=== PATIENT | female | born 1970 | race Caucasian/White ===

== ENCOUNTER 2018-11-08 10:40 | Inpatient (IN) ==
[2018-11-08 12:13] LABS: Baso # (Auto) 0.1 th/mm3 (0.0-0.2); Baso % (Auto) 1.1 % (0.0-2.0); Eos # (Auto) 0.3 th/mm3 (0.0-0.4); Eos % (Auto) 4.4 % (0.0-4.0); Hematocrit 39.5 % (35.0-46.0); Hemoglobin 13.2 gm/dL (11.6-15.3); Lymph # (Auto) 3.1 th/mm3 (1.0-4.8); Lymph % (Auto) 40.2 % (9.0-44.0); Mean Corpuscular HGB Conc 33.4 % (32.0-36.0); Mean Corpuscular Volume 89.7 fL (80.0-100.0); Mean Platelet Volume 10.3 fL (7.0-11.0); Mono # (Auto) 0.6 th/mm3 (0.0-0.9); Mono % (Auto) 8.3 % (0.0-8.0); Neut # (Auto) 3.5 th/mm3 (1.8-7.7); Platelet Count 279 th/mm3 (150-450); Red Cell Distribution Width 14.7 % (11.6-17.2); White Blood Count 7.7 th/mm3 (4.0-11.0)
--- NOTE | 2018-11-08 12:14 | ED ---
HPI General Chief complaint: Skin/Abscess/Foreign Body Stated complaint: Dr Thompson/Sarah Infection on foot (Right) Time Seen by Provider: 11/08/18 11:08 Source: patient Mode of arrival: ambulatory Limitations: no limitations History of Present Illness HPI narrative: Patient is a 48-year-old female presenting to the emergency department for evaluation of possible osteomyelitis. Patient reports that she has had a blister to the lateral aspect of the right foot for at least 1 week. She states is been draining clear fluids. She is followed by curtain inspector, Dr. Phelan. She states he sent her into the emergency department for further evaluation. Patient states that she has noticed serous fluid draining from this area. She initially thought it was just a callus however she states her doctor told her there was pus under it. Patient reports a history of diabetes with diabetic neuropathy, her diabetes is uncontrolled and her last A1c was 12. Past medical history significant for hypertension and hyperlipidemia as well. She is pain-free currently. She denies any fever, chills, nausea, vomiting, weakness. Symptom onset was gradual, symptoms are moderate. Related Data Home Medications Medication Instructions Recorded Confirmed glipizide 10 mg PO BID 11/08/18 11/08/18 insulin NPH and regular human 60 units SUBCUT BID 11/08/18 11/08/18 [Novolin 70/30 U-100 Insulin] lisinopril 40 mg PO DAILY 11/08/18 11/08/18 lovastatin 20 mg PO DAILY 11/08/18 11/08/18 metformin 500 mg PO BID 11/08/18 11/08/18 Previous Rx's Medication Instructions Recorded cephalexin 500 mg PO BID 7 Days #14 cap 11/10/18 mupirocin calcium [Bactroban] 1 applic TOPICAL BID #15 g 11/10/18 Allergies Allergy/AdvReac Type Severity Reaction Status Date / Time Sulfa (Sulfonamide Allergy Rash Verified 11/08/18 10:51 Antibiotics) Review of Systems ROS: all other systems reviewed are negative [facility] Medical History Medical History Diabetic neuropathy (Acute) Hyperlipidemia (Acute) Hypertension (Acute) Obesity (Acute) Type 2 diabetes mellitus (Acute) Social History Social History Substance History: No History of Abuse Second Hand Smoke Exposure: Yes (childhood) Smoking Status: Former smoker Tobacco Type: Cigarettes How Often Do You Have a Drink Containing Alcohol: Never Recent Travel in [facility] within the Last 8 Weeks: No Recent Out of Country Travel within the Last 8 Weeks: No Immunization History Tetanus Immunization: Unsure Exam Narrative Exam Narrative: GENERAL: Obese, well-developed, alert female. Presenting in no acute distress. SKIN: Focused skin assessment warm/dry. Bullous lesion to the lateral aspect of the right foot extending to the plantar surface. Fluctuant, nontender, no induration noted. HEAD: Atraumatic. Normocephalic. EYES: Pupils equal and round. No scleral icterus. No injection or drainage. ENT: No nasal bleeding or discharge. Mucous membranes pink and moist. NECK: Trachea midline. No JVD. CARDIOVASCULAR: Regular rate and rhythm. No murmur appreciated. RESPIRATORY: No accessory muscle use. Clear to auscultation. Breath sounds equal bilaterally. GASTROINTESTINAL: Abdomen soft, non-tender, nondistended. Hepatic and splenic margins not palpable. MUSCULOSKELETAL: No obvious deformities. No clubbing. No cyanosis. No edema. 2+ dorsalis pedal pulse. Brisk less than 3-second capillary refill. NEUROLOGICAL: Awake and alert. No obvious cranial nerve deficits. Motor grossly within normal limits. Normal speech. PSYCHIATRIC: Appropriate mood and affect; insight and judgment normal. Course Initial Documented Vital Signs Temperature 98.4 F 11/08/18 10:51 Pulse Rate 80 11/08/18 10:51 Respiratory Rate 16 11/08/18 10:51 Blood Pressure 175/95 H 11/08/18 10:51 Last Documented Vital Signs Temperature 98.1 F 11/10/18 12:00 Pulse Rate 74 11/10/18 12:00 Respiratory Rate 20 11/10/18 12:00 Blood Pressure 105/58 L 11/10/18 12:00 Pulse Oximetry 99 11/10/18 12:00 Medical Decision Making GREGG Attestation GREGG supervised visit: Yes Attestation: I, Dr. Britt, have reviewed the advance practice practitioner' s documentation and am in agreement, met with the patient face to face, made the diagnosis, and the medical decision making was done by me. The patient was initially evaluated by [yumiko farmer]. Please see their complete history and physical. MDM Narrative Medical decision making narrative: Patient is a well-appearing 48-year-old female presenting with a wound to her right foot. Patient's vital signs are stable, labs and imaging ordered and pending. Patient has no complaints of pain at this time. Patient encouraged to notify RN if she is experiencing any pain. CBC with no acute findings, chemistry with an elevated blood glucose otherwise unremarkable. CRP 2.20, sed rate 24. Patient was given 1 g of vancomycin IV. CT scan shows diffuse subcutaneous edema, no organized fluid collection, no sign of osteomyelitis. Discussed with Dr. Phelan, he requested a consult be placed to Dr. Drew who would see patient in the hospital. He felt that patient would be better managed and patient to keep her blood glucose under control as well. Discussed with Dr. Kelvin Meraz who accepted admit, orders placed. Patient is made aware of all clinical findings and plan of care and is agreeable. Medical Screen Exam Complete: Yes Emergency Medical Condition: Yes Differential Diagnosis Differential Diagnosis: Cellulitis versus abscess versus osteomyelitis versus other Lab Data Result diagrams: 11/09/18 04:25 11/09/18 04:25 POC Results POC Urine Results Negative Lab Results 11/08/18 11/08/18 11/08/18 Range/Units 11:51 11:51 11:55 WBC 7.7 (4.0-11.0) th/mm3 RBC 4.40 (4.00-5.30) mil/mm3 Hgb 13.2 (11.6-15.3) gm/dL Hct 39.5 (35.0-46.0) % MCV 89.7 (80.0-100.0) fL MCH 30.0 (27.0-34.0) pg MCHC 33.4 (32.0-36.0) % RDW 14.7 (11.6-17.2) % Plt Count 279 (150-450) th/mm3 MPV 10.3 (7.0-11.0) fL Neut % (Auto) 46.0 (16.0-70.0) % Lymph % (Auto) 40.2 (9.0-44.0) % [place] % (Auto) 8.3 H (0.0-8.0) % Eos % (Auto) 4.4 H (0.0-4.0) % Baso % (Auto) 1.1 (0.0-2.0) % Neut # (Auto) 3.5 (1.8-7.7) th/mm3 Lymph # (Auto) 3.1 (1.0-4.8) th/mm3 [place] # (Auto) 0.6 (0.0-0.9) th/mm3 Eos # (Auto) 0.3 (0.0-0.4) th/mm3 Baso # (Auto) 0.1 (0.0-0.2) th/mm3 WBC Differential . Differential Comment Auto diff final ESR 24 H (0-20) mm/hr Sodium 133 L (136-145) meq/L Potassium 4.9 (3.5-5.1) meq/L Chloride 101 (98-107) meq/L Carbon Dioxide 27.6 (21.0-32.0) meq/L Anion Gap 4 L (5-15) meq/L BUN 18 (7-18) mg/dL Creatinine 0.86 (0.50-1.00) mg/dL Estimated GFR 70 L (>89) mL/min POC Glucose (68-110) mg/dl Random Glucose 392 H (74-106) mg/dL Hemoglobin A1c (4.3-6.0) % Calcium 8.9 (8.5-10.1) mg/dL Total Bilirubin 0.4 (0.2-1.0) mg/dL Direct Bilirubin 0.1 (0.0-0.2) mg/dL Indirect Bilirubin 0.3 (0.0-0.8) mg/dL AST 26 (15-37) U/L ALT 29 (10-53) U/L Alkaline Phosphatase 105 (45-117) U/L C-Reactive Protein 2.20 H (0.00-0.30) mg/dL Total Protein 7.7 (6.4-8.2) g/dL Albumin 3.2 L (3.4-5.0) g/dL Vancomycin Trough (5.0-10.0) mcg/mL 11/08/18 11/08/18 11/09/18 Range/Units 18:36 21:06 04:25 WBC 6.8 (4.0-11.0) th/mm3 RBC 4.40 (4.00-5.30) mil/mm3 Hgb 13.2 (11.6-15.3) gm/dL Hct 39.3 (35.0-46.0) % MCV 89.4 (80.0-100.0) fL MCH 30.0 (27.0-34.0) pg MCHC 33.5 (32.0-36.0) % RDW 14.2 (11.6-17.2) % Plt Count 241 (150-450) th/mm3 MPV 8.8 (7.0-11.0) fL Neut % (Auto) 42.6 (16.0-70.0) % Lymph % (Auto) 42.6 (9.0-44.0) % [place] % (Auto) 8.6 H (0.0-8.0) % Eos % (Auto) 5.3 H (0.0-4.0) % Baso % (Auto) 0.9 (0.0-2.0) % Neut # (Auto) 2.9 (1.8-7.7) th/mm3 Lymph # (Auto) 2.9 (1.0-4.8) th/mm3 [place] # (Auto) 0.6 (0.0-0.9) th/mm3 Eos # (Auto) 0.4 (0.0-0.4) th/mm3 Baso # (Auto) 0.1 (0.0-0.2) th/mm3 WBC Differential . Differential Comment Auto diff final ESR (0-20) mm/hr Sodium (136-145) meq/L Potassium (3.5-5.1) meq/L Chloride (98-107) meq/L Carbon Dioxide (21.0-32.0) meq/L Anion Gap (5-15) meq/L BUN (7-18) mg/dL Creatinine (0.50-1.00) mg/dL Estimated GFR (>89) mL/min POC Glucose 300 H 313 H (68-110) mg/dl Random Glucose (74-106) mg/dL Hemoglobin A1c (4.3-6.0) % Calcium (8.5-10.1) mg/dL Total Bilirubin (0.2-1.0) mg/dL Direct Bilirubin (0.0-0.2) mg/dL Indirect Bilirubin (0.0-0.8) mg/dL AST (15-37) U/L ALT (10-53) U/L Alkaline Phosphatase (45-117) U/L C-Reactive Protein (0.00-0.30) mg/dL Total Protein (6.4-8.2) g/dL Albumin (3.4-5.0) g/dL Vancomycin Trough (5.0-10.0) mcg/mL 11/09/18 11/09/18 11/09/18 Range/Units 04:25 04:25 07:53 WBC (4.0-11.0) th/mm3 RBC (4.00-5.30) mil/mm3 Hgb (11.6-15.3) gm/dL Hct (35.0-46.0) % MCV (80.0-100.0) fL MCH (27.0-34.0) pg MCHC (32.0-36.0) % RDW (11.6-17.2) % Plt Count (150-450) th/mm3 MPV (7.0-11.0) fL Neut % (Auto) (16.0-70.0) % Lymph % (Auto) (9.0-44.0) % [place] % (Auto) (0.0-8.0) % Eos % (Auto) (0.0-4.0) % Baso % (Auto) (0.0-2.0) % Neut # (Auto) (1.8-7.7) th/mm3 Lymph # (Auto) (1.0-4.8) th/mm3 [place] # (Auto) (0.0-0.9) th/mm3 Eos # (Auto) (0.0-0.4) th/mm3 Baso # (Auto) (0.0-0.2) th/mm3 WBC Differential Differential Comment ESR (0-20) mm/hr Sodium 143 D (136-145) meq/L Potassium 3.9 D (3.5-5.1) meq/L Chloride 108 H (98-107) meq/L Carbon Dioxide 30.2 (21.0-32.0) meq/L Anion Gap 5 (5-15) meq/L BUN 13 (7-18) mg/dL Creatinine 0.68 (0.50-1.00) mg/dL Estimated GFR Greater than 89 (>89) mL/min POC Glucose 133 H (68-110) mg/dl Random Glucose 99 D (74-106) mg/dL Hemoglobin A1c 13.8 H (4.3-6.0) % Calcium 9.0 (8.5-10.1) mg/dL Total Bilirubin 0.3 (0.2-1.0) mg/dL Direct Bilirubin (0.0-0.2) mg/dL Indirect Bilirubin (0.0-0.8) mg/dL AST 15 (15-37) U/L ALT 23 (10-53) U/L Alkaline Phosphatase 76 (45-117) U/L C-Reactive Protein (0.00-0.30) mg/dL Total Protein 7.1 D (6.4-8.2) g/dL Albumin 2.9 L (3.4-5.0) g/dL Vancomycin Trough (5.0-10.0) mcg/mL 11/09/18 11/09/18 11/10/18 Range/Units 17:27 20:10 07:46 WBC (4.0-11.0) th/mm3 RBC (4.00-5.30) mil/mm3 Hgb (11.6-15.3) gm/dL Hct (35.0-46.0) % MCV (80.0-100.0) fL MCH (27.0-34.0) pg MCHC (32.0-36.0) % RDW (11.6-17.2) % Plt Count (150-450) th/mm3 MPV (7.0-11.0) fL Neut % (Auto) (16.0-70.0) % Lymph % (Auto) (9.0-44.0) % [place] % (Auto) (0.0-8.0) % Eos % (Auto) (0.0-4.0) % Baso % (Auto) (0.0-2.0) % Neut # (Auto) (1.8-7.7) th/mm3 Lymph # (Auto) (1.0-4.8) th/mm3 [place] # (Auto) (0.0-0.9) th/mm3 Eos # (Auto) (0.0-0.4) th/mm3 Baso # (Auto) (0.0-0.2) th/mm3 WBC Differential Differential Comment ESR (0-20) mm/hr Sodium (136-145) meq/L Potassium (3.5-5.1) meq/L Chloride (98-107) meq/L Carbon Dioxide (21.0-32.0) meq/L Anion Gap (5-15) meq/L BUN (7-18) mg/dL Creatinine (0.50-1.00) mg/dL Estimated GFR (>89) mL/min POC Glucose 315 H 330 H 195 H (68-110) mg/dl Random Glucose (74-106) mg/dL Hemoglobin A1c (4.3-6.0) % Calcium (8.5-10.1) mg/dL Total Bilirubin (0.2-1.0) mg/dL Direct Bilirubin (0.0-0.2) mg/dL Indirect Bilirubin (0.0-0.8) mg/dL AST (15-37) U/L ALT (10-53) U/L Alkaline Phosphatase (45-117) U/L C-Reactive Protein (0.00-0.30) mg/dL Total Protein (6.4-8.2) g/dL Albumin (3.4-5.0) g/dL Vancomycin Trough (5.0-10.0) mcg/mL 11/10/18 11/10/18 Range/Units 08:00 11:53 WBC (4.0-11.0) th/mm3 RBC (4.00-5.30) mil/mm3 Hgb (11.6-15.3) gm/dL Hct (35.0-46.0) % MCV (80.0-100.0) fL MCH (27.0-34.0) pg MCHC (32.0-36.0) % RDW (11.6-17.2) % Plt Count (150-450) th/mm3 MPV (7.0-11.0) fL Neut % (Auto) (16.0-70.0) % Lymph % (Auto) (9.0-44.0) % [place] % (Auto) (0.0-8.0) % Eos % (Auto) (0.0-4.0) % Baso % (Auto) (0.0-2.0) % Neut # (Auto) (1.8-7.7) th/mm3 Lymph # (Auto) (1.0-4.8) th/mm3 [place] # (Auto) (0.0-0.9) th/mm3 Eos # (Auto) (0.0-0.4) th/mm3 Baso # (Auto) (0.0-0.2) th/mm3 WBC Differential Differential Comment ESR (0-20) mm/hr Sodium (136-145) meq/L Potassium (3.5-5.1) meq/L Chloride (98-107) meq/L Carbon Dioxide (21.0-32.0) meq/L Anion Gap (5-15) meq/L BUN (7-18) mg/dL Creatinine (0.50-1.00) mg/dL Estimated GFR (>89) mL/min POC Glucose 293 H (68-110) mg/dl Random Glucose (74-106) mg/dL Hemoglobin A1c (4.3-6.0) % Calcium (8.5-10.1) mg/dL Total Bilirubin (0.2-1.0) mg/dL Direct Bilirubin (0.0-0.2) mg/dL Indirect Bilirubin (0.0-0.8) mg/dL AST (15-37) U/L ALT (10-53) U/L Alkaline Phosphatase (45-117) U/L C-Reactive Protein (0.00-0.30) mg/dL Total Protein (6.4-8.2) g/dL Albumin (3.4-5.0) g/dL Vancomycin Trough 21.8 H (5.0-10.0) mcg/mL Imaging Data Radiologist's impression: Foot MRI 11/08/18 00:00 CONCLUSION: 1. Ill-defined soft tissue edema of the foot as well as ill-defined enhancement of the superficial soft tissues of the foot indicating cellulitis in the proper clinical setting. Findings most prominent at the plantar lateral aspect of the midfoot. 2. Extensive area of relatively less soft tissue enhancement in the plantar soft tissues of the midfoot indicating possible devascularized tissue. No evidence of peripheral enhancing organized abscess. 3. Nonspecific patchy bony edema of the hindfoot, midfoot, and forefoot. Dorsal subluxation of the fourth and fifth metatarsal bases at the TMT joints. No discrete fracture line identified. 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 4. No findings specific for osteomyelitis identified. Foot CT 11/08/18 11:17 CONCLUSION: 1. Diffuse subcutaneous edema of the foot with a suspected open wound laterally adjacent to the fifth tarsometatarsal joint. 2. No organized fluid collection is appreciated on this noncontrast examination to suggest abscess. There are no imaging findings to indicate osteomyelitis. Discharge Plan Discharge Disposition Patient Disposition: ED Admit(ED Internal Use Only) Discharge Condition Condition: Stable Discharge Order Discharge Orders: Discharge Order (Routine); Ordered 11/10/18 Ordered By: Reymundo Meraz ED Use Only Admit Order (Routine); Ordered 11/08/18 Ordered By: Yumiko Farmer Discharge Details Anticipated Discharge Date: 11/10/18 Diagnosis: Cellulitis and abscess of other specified site, Uncontrolled diabetes mellitus Physicians Team ED Provider: Oh Britt ED Midlevel Provider: Yumiko Farmer Primary Care Provider: Sebastián Tirado Attending Provider: Reymundo Meraz Other Providers: Ramana Drew Status ED Status: Left Department Discharge Information Discharge Date/Time: 11/08/18 17:00
[2018-11-08 12:37] LABS: C-Reactive Protein 2.2 mg/dL (0.00-0.30)
[2018-11-08 12:40] LABS: Total Protein 7.7 g/dL (6.4-8.2)
[2018-11-08 12:41] LABS: Albumin 3.2 g/dL (3.4-5.0); Calcium 8.9 mg/dL (8.5-10.1); Carbon Dioxide 27.6 meq/L (21.0-32.0)
[2018-11-08 12:46] LABS: Potassium 4.9 meq/L (3.5-5.1)
[2018-11-08] MEDS ORDERED: Vancomycin Inj 1,000 MG in Sodium Chlor 0.9% Inj 250 ML IV.SIG STA (13:46)
--- NOTE | 2018-11-08 15:06 | CT ---
EXAM DATE: 11/08/2018 2:38 PM EST AGE/SEX: 48 years / Female INDICATIONS: Foot infection, wound on lateral aspect of foot for one week. Evaluate for osteomyeliti s. CLINICAL DATA: This is the patient's initial encounter. Patient reports that signs and symptoms have been present for 1 week and indicates a pain score of 0/10. MEDICAL/SURGICAL HISTORY: None. None. RADIATION DOSE: 7.29 CTDI (mGy) COMPARISON: No prior exams available for comparison. TECHNIQUE: Multiple contiguous axial images were acquired using a multirow detector CT scanner witho ut contrast. Multiplanar reconstruction was performed in the sagittal and coronal planes. Using auto mated exposure control and adjustment of the mA and/or kV according to patient size, radiation dose w as kept as low as reasonably achievable to obtain optimal diagnostic quality images. DICOM format im age data is available electronically for review and comparison. FINDINGS: There is diffuse subcutaneous edema of the foot with subcutaneous air on the lateral aspect in the mi dfoot adjacent to the fifth tarsometatarsal joint. No organized fluid collection is appreciated on th is noncontrast examination. No erosion or periosteal reaction is appreciated. There are degenerative changes throughout the midfoot and hindfoot. No acute fracture or dislocation is identified. There is small vessel arterial vascular calcification which is typically seen in patients with diabetes. CONCLUSION: 1. Diffuse subcutaneous edema of the foot with a suspected open wound laterally adjacent to the fift h tarsometatarsal joint. 2. No organized fluid collection is appreciated on this noncontrast examination to suggest abscess. There are no imaging findings to indicate osteomyelitis. Electronically signed by: Johnson Levy MD Board Certified Radiologist 11/08/2018 3:04 PM EST
[2018-11-08] MEDS ORDERED: Vancomycin Inj 1,000 MG in Sodium Chlor 0.9% Inj 250 ML IV.SIG SCH (16:08)
--- NOTE | 2018-11-08 16:12 | P.HPIM ---
History of Present Illness Primary Care Physician: THAD Myers Chief Complaint: Right foot infection/swelling History of Present Illness: Mrs. Leung is a 48-year-old female. She comes in the hospital today complaining of right foot infection which has not significantly improved as an outpatient. As an outpatient she has been taking Augmentin. She said a blister formed on her foot, ruptured, and subsequently was draining developed redness. She has redness at the lateral aspect of her foot with the ruptured fluid-filled blister, without purulent discharge. No signs of sepsis on vital signs. She does have a history of peripheral neuropathy and this is likely contributory. 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 CT scan showed no acute evidence of vasculitis, MRI is pending to screen for abscess and ostium mellitus. No significant pain. No other points today. Review of Systems Constitutional: No fevers, no chills no night sweats, no fatigue, no weakness Eyes: No eye pain, no blurry vision, no loss of vision ENT: No sore throat, no ear pain, no rhinorrhea Cardiovascular: No chest pain, no tachycardia, no palpitations, no syncope Respiratory: No wheezing, no cough, no shortness of breath Gastrointestinal: No abdominal pain, no black tarry stools, no bright red blood per rectum, no vomiting, no diarrhea Musculoskeletal: No joint pain, no muscle cramps, no stiffness Integumentary: No rash, no ulcers, right foot infection with redness and drainage Neurologic: No sensory loss, no loss of motor function, no dizziness Psychiatric: No behavioral changes, no hallucinations, no suicidal ideations [facility] Medical History Medical History Diabetic neuropathy (Acute) Hyperlipidemia (Acute) Hypertension (Acute) Obesity (Acute) Type 2 diabetes mellitus (Acute) Social History Social History Smoking Status: Never smoker How Often Do You Have a Drink Containing Alcohol: Unable to Obtain Recent Travel in [facility] within the Last 8 Weeks: No Recent Out of Country Travel within the Last 8 Weeks: No Immunization History Tetanus Immunization: Unsure Medications and Allergies Allergies Allergy/AdvReac Type Severity Reaction Status Date / Time Sulfa (Sulfonamide Allergy Rash Verified 11/08/18 10:51 Antibiotics) Home Medications Medication Instructions Recorded Confirmed Type amoxicillin-pot clavulanate 1 tab PO BID 11/08/18 11/08/18 History [Augmentin] glipizide 10 mg PO BID 11/08/18 11/08/18 History insulin NPH and regular human 60 units SUBCUT BID 11/08/18 11/08/18 History [Novolin 70/30 U-100 Insulin] lisinopril 40 mg PO DAILY 11/08/18 11/08/18 History lovastatin 20 mg PO DAILY 11/08/18 11/08/18 History metformin 500 mg PO BID 11/08/18 11/08/18 History Active Medications: Active Medications Acetaminophen (Tylenol) 650 mg PO Q4H PRN PRN Reason: Temp > 100.4 Hydrocodone Bitart/Acetaminophen ([place] 10/325) 1 tab PO Q4H PRN PRN Reason: Pain 7 to 10 Hydrocodone Bitart/Acetaminophen ([place] 5/325) 1 tab PO Q4H PRN PRN Reason: Pain 3 to 6 Al Hydroxide/Mg Hydroxide (Milk Of Magnnavneet Liq) 30 ml PO Q12H PRN PRN Reason: Mild Constipation Sodium Chloride (Ns Inj) 1,000 mls @ 70 mls/hr IV.CONT .[id number] LISA Lactobacillus Acidophilus (Lactinex) 1 tab PO TID LISA Ondansetron HCl (Zofran Inj) 4 mg IV.PUSH Q6H PRN PRN Reason: NAUSEA OR VOMITING Sodium Chloride (Ns Flush) 2 ml IV.FLUSH PRN PRN PRN Reason: FLUSH AFTER USING IV ACCESS Sodium Chloride (Ns Flush) 2 ml IV.FLUSH BID LISA Sodium Chloride (Ns Flush) 2 ml IV.FLUSH PRN PRN PRN Reason: FLUSH AFTER USING IV ACCESS Physical Exam Vital signs: Last Vital Signs Temp 98.4 F 11/08/18 10:51 Pulse 80 11/08/18 10:51 Resp 16 11/08/18 10:51 BP 175/95 H 11/08/18 10:51 Intake & Output 11/06/18 11/07/18 11/08/18 11/09/18 06:59 06:59 06:59 06:59 Intake Total 250 / 250 Balance 250 / 250 Weight 129.274 kg Narrative: GENERAL: NAD, A&Ox3 HEAD: Normocephalic. NECK: Supple, trachea midline. No lymphadenopathy. EYES: No scleral icterus. No injection or drainage. CARDIOVASCULAR: Regular rate and rhythm without murmurs, gallops, or rubs. RESPIRATORY: Breath sounds equal bilaterally. No accessory muscle use. GASTROINTESTINAL: Abdomen soft, non-tender, nondistended. MUSCULOSKELETAL: No cyanosis, or edema. SKIN: Warm and dry. Patient's right foot has a fluid-filled cystic blister starting at the lateral aspect of the foot and tracking downward to the plantar surface of the middle of the foot where an opening is present and drainage of clear fluid is present. Erythema is present at the right lateral aspect of the foot. NEURO: No focal neurological deficits. Results Labs CBC & Chem 7: 11/08/18 11:51 11/08/18 11:[address] 11/08/18 11:17 CONCLUSION: 1. Diffuse subcutaneous edema of the foot with a suspected open wound laterally adjacent to the fifth tarsometatarsal joint. 2. No organized fluid collection is appreciated on this noncontrast examination to suggest abscess. There are no imaging findings to indicate osteomyelitis. Caprini VTE Risk Assessment Caprini VTE Risk Assessment: No/Low Risk (score <= 1) Caprini Risk Assessment Model: Point Value = 1 Point Value = 2 Point Value = 3 Point Value = 5 Age 41-60 Minor surgery BMI > 25 kg/m2 Swollen legs Varicose veins or History of unexplained or recurrent spontaneous Oral contraceptives or hormone replacement Sepsis (< 1 month) Serious lung disease, including pneumonia (< 1 month) Abnormal pulmonary function Acute myocardial infarction Congestive heart failure (< 1 month) History of inflammatory bowel disease Medical patient at bed rest Age 61-74 Arthroscopic surgery Major open surgery (> 45 min) Laparoscopic surgery (> 45 min) Malignancy Confined to bed (> 72 hours) Immobilizing plaster cast Central venous access Age >= 75 History of VTE Family history of VTE Factor V Leiden Prothrombin [id number] Lupus anticoagulant Anticardiolipin antibodies Elevated serum homocysteine Heparin-induced thrombocytopenia Other congenital or acquired thrombophilia Stroke (< 1 month) Elective arthroplasty Hip, pelvis, or leg fracture Acute spinal cord injury (< 1 month) Prophylaxis Regimen: Total Risk Factor Score Risk Level Prophylaxis Regimen 0-1 Low Early ambulation 2 Moderate Order ONE of the following: *Sequential Compression Device (SCD) *Heparin 5000 units SQ BID 3-4 Higher Order ONE of the following medications: *Heparin 5000 units SQ TID *Enoxaparin/Lovenox 40 mg SQ daily (WT < 150 kg, CrCl > 30 mL/min) *Enoxaparin/Lovenox 30 mg SQ daily (WT < 150 kg, CrCl > 10-29 mL/min) *Enoxaparin/Lovenox 30 mg SQ BID (WT < 150 kg, CrCl > 30 mL/min) AND/OR *Sequential Compression Device (SCD) 5 or more Highest Order ONE of the following medications: *Heparin 5000 units SQ TID (Preferred with Epidurals) *Enoxaparin/Lovenox 40 mg SQ daily (WT < 150 kg, CrCl > 30 mL/min) *Enoxaparin/Lovenox 30 mg SQ daily (WT < 150 kg, CrCl > 10-29 mL/min) *Enoxaparin/Lovenox 30 mg SQ BID (WT < 150 kg, CrCl > 30 mL/min) AND *Sequential Compression Device (SCD) Assessment and Plan Plan 48-year-old female admitted secondary to diabetic foot infection of the right foot Right diabetic foot infection Outpatient treatment failure Vancomycin Probiotics Podiatry Consult Cultures obtained by podiatry Follow cultures MRI of right foot Diabetes mellitus type 2 Follow blood sugars Insulin sliding scale Diabetic diet Continue baseline 70/30 Novolin Patient may need adjustments while here Obtain hemoglobin A1c Hypertension Continue baseline treatment Follow blood pressures Adjust treatments as needed Hyperlipidemia Continue present treatment Follow as an outpatient DVT prophylaxis SCDs
[2018-11-08] MEDS ORDERED: Dextrose 50% in Water 50 ML Vial IV.PUSH PRN (16:48)
--- NOTE | 2018-11-08 17:41 | MB ---
cc: Ramana Faust DPM DATE: 11/08/2018 REASON FOR CONSULTATION: Right foot ulcer, abscess, cellulitis. HISTORY OF PRESENT ILLNESS: This is a 48-year-old female who is known to my practice. She routinely sees Dr. Patel. She saw Dr. Phelan. Dr. Phelan was very concerned that there may be an evolving abscess and recommended admission to the hospital for the patient to get adequate treatment. I am seeing the patient at bedside with medicine. There does appear to be a fluctuant superficial abscess with possible underlying ulceration. The patient denies incident or injury associated with the onset of the symptoms. She does admit to have neuropathy and feels her foot is changing. PAST MEDICAL HISTORY: Positive for diabetes, peripheral neuropathy, obesity, hypertension, hyperlipidemia. SOCIAL HISTORY: No smoking. No habits listed. OUTPATIENT MEDICATIONS: 1. Glipizide. 2. Glucagon. OTHER HOME MEDICATIONS: 1. Lovastatin. 2. Lisinopril. 3. Insulin. 4. Metformin. 5. Glipizide. 6. Amoxicillin. Inpatient medications also reviewed. The patient is now receiving vancomycin. ALLERGIES: SULFA DRUGS. PHYSICAL EXAMINATION: VITAL SIGNS: Temperature is 98.4, pulse rate 80, respiratory rate 16, blood pressure 175/95. She is saturating 97% on room air. GENERAL: This is an alert and oriented female seen at bedside, exhibiting nonlabored respirations. EXTREMITIES: Right lower extremity was examined. There was noted to be a fluctuant area of the plantar mid-foot, which appears to communicate with the dorsolateral midfoot, just at the level of the fifth metatarsal base. Upon incision and drainage and debridement, there was noted to be a partial-thickness ulcer at the plantar aspect of the cuboid. It has a red viable beefy base measuring approximately 2.5 x 3 cm. Superficial serous drainage is noted without any probing, deep tunneling, or tracking noted. Pedal pulses are palpable. Sensation decreased to light touch below the bilateral ankles. Left lower extremity is free from any obvious pathology or ulceration. LABORATORY FINDINGS: White blood cell 7.7, hemoglobin and hematocrit 13 and 39, platelet count is 279. ESR is 24. Chem-7: Sodium 133, potassium 4.9, chloride 101, CO2 of 27.6, BUN is 18. Random glucose was 392. C-reactive protein is 2.2. Albumin is 3.2. Foot CT: Most consistent with subcutaneous edema of the foot with an open wound on the lateral adjacent to fifth tarsometatarsal joint. No obvious organized fluid collection. A superficial air was noted, which correlated with the superficial blister. Upon carefully going through the images, the patient does have some arthritic changes that are quite significant which could correlate with early onset Charcot joint disease. MRI recommended from my standpoint to further correlate. ASSESSMENT AND PLAN: Right foot ulcer, abscess, cellulitis, possible Charcot arthropathy. My recommendation was an incision and drainage. This was done at bedside. Timeout and verbal informed written consent took place. The right foot was scrubbed, prepped, and draped in the usual aseptic fashion. The foot was elevated and examined. Utilizing sterile suture removal scissors and pickups, the ulceration was deroofed. At the plantar aspect of the foot, sharp selective excisional debridement took place utilizing cutting instruments down to viable bleeding tissue. Deep culture taken of this area. Xeroform, 4 x 4, and a bandage applied. We will continue to follow along the culture results along with the MRI. I discussed the case with medicine. Anticipate 1-2 days until we figure out the bacteria. Likely discharge home as the patient improves. I do not see any reason for further surgical debridement at this point. RAUL Bolden , 05:06 PM , 05:16 PM
[2018-11-08] MEDS ORDERED: Gadobutrol PF 10 MMOL/10 ML Vial (for RAD) IV.SIG ONE (18:12)
[2018-11-08] MEDS: Insulin NovoLOG Aspart Correctional Sugar Inj SQ SCH ×2 (19:02→21:10)
[2018-11-08] MEDS: glipiZIDE 10 MG Tablet PO SCH (19:02)
[2018-11-08] MEDS: Lactobacillus Acidophilus/L. Spores Tablet PO SCH (19:06)
--- NOTE | 2018-11-08 19:21 | MR ---
EXAM DATE: 11/08/2018 6:27 PM EST AGE/SEX: 48 years / Female INDICATIONS: Osteomyelitis. Planter surface of right foot by fifth toe. CLINICAL DATA: This is the patient's initial encounter. Patient reports that signs and symptoms have been present for 2 weeks and indicates a pain score of 3/10. MEDICAL/SURGICAL HISTORY: Hypertension. Diabetes mellitus type II. section. Tubal li gation. Right foot great toe. COMPARISON: No prior exams available for comparison. TECHNIQUE: Multiplanar, multisequence MRI examination was performed without contrast and after th e intravenous administration of 12 ml Gadavist (gadobutrol) single exam dose. FINDINGS: Ill-defined superficial soft tissue edema dorsally. Mild diffuse superficial soft tissue enhancement of the dorsal aspect of the foot and the medial plantar aspect of the midfoot. Large area of relative ly decreased soft tissue enhancement at the plantar aspect of the midfoot and forefoot extending to t he plantar aspects of the cuboid and second through fifth metatarsal shafts. No peripherally enhancin g fluid collections in the soft tissues. Nonspecific ill-defined bony edema of the talus, navicular, cuneiforms, cuboid, and second through fo urth metatarsal bases. There is dorsal subluxation of the fifth and fourth metatarsals at the tarsome tatarsal joints. Prominent bony edema of the anterior process of the calcaneus. Small osteophytes of all of the tarsometatarsal joints and navicular cuneiform joints and calcaneocuboid joint along with the talonavicular joint. Pes planus deformity noted. There is patchy bony edema in the lateral aspect of the calcaneus but no confluent bone marrow signal abnormality to confirm osteomyelitis. Prominent nonspecific intermediate signal abnormality of the sinus tarsi and anterior lateral ankle j oint recess. All of the visualized tendons are intact. CONCLUSION: 1. Ill-defined soft tissue edema of the foot as well as ill-defined enhancement of the superficial s oft tissues of the foot indicating cellulitis in the proper clinical setting. Findings most prominent at the plantar lateral aspect of the midfoot. 2. Extensive area of relatively less soft tissue enhancement in the plantar soft tissues of the midf oot indicating possible devascularized tissue. No evidence of peripheral enhancing organized abscess. 3. Nonspecific patchy bony edema of the hindfoot, midfoot, and forefoot. Dorsal subluxation of the f ourth and fifth metatarsal bases at the TMT joints. No discrete fracture line identified. 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 4. No findings specific for osteomyelitis identified. Electronically signed by: Santos Perera MD Board Certified Radiologist 11/08/2018 7:19 PM EST
[2018-11-08] MEDS ORDERED: Vancomycin Inj 1,500 MG in Sodium Chlor 0.9% Inj 500 ML IV.SIG ONE (20:00)
[2018-11-08] MEDS: Sod Chloride 0.9% Inj 1,000 ML IV.CONT SCH (22:30)
[2018-11-09] MEDS ORDERED: Vancomycin Consult Pharmacy OTHER PRN (02:00)
[2018-11-09 05:01] LABS: Baso # (Auto) 0.1 th/mm3 (0.0-0.2); Baso % (Auto) 0.9 % (0.0-2.0); Eos # (Auto) 0.4 th/mm3 (0.0-0.4); Eos % (Auto) 5.3 % (0.0-4.0); Hematocrit 39.3 % (35.0-46.0); Hemoglobin 13.2 gm/dL (11.6-15.3); Lymph # (Auto) 2.9 th/mm3 (1.0-4.8); Lymph % (Auto) 42.6 % (9.0-44.0); Mean Corpuscular HGB Conc 33.5 % (32.0-36.0); Mean Corpuscular Volume 89.4 fL (80.0-100.0); Mean Platelet Volume 8.8 fL (7.0-11.0); Mono # (Auto) 0.6 th/mm3 (0.0-0.9); Mono % (Auto) 8.6 % (0.0-8.0); Neut # (Auto) 2.9 th/mm3 (1.8-7.7); Neut % (Auto) 42.6 % (16.0-70.0); Platelet Count 241 th/mm3 (150-450); Red Cell Distribution Width 14.2 % (11.6-17.2); White Blood Count 6.8 th/mm3 (4.0-11.0)
[2018-11-09 05:37] LABS: Alanine Aminotransferase 23 U/L (10-53); Albumin 2.9 g/dL (3.4-5.0); Alkaline Phosphatase 76 U/L (45-117); Anion Gap 5 meq/L (5-15); Aspartate Aminotransferase 15 U/L (15-37); Blood Urea Nitrogen 13 mg/dL (7-18); Carbon Dioxide 30.2 meq/L (21.0-32.0); Chloride 108 meq/L (98-107); Glomerular Filtration Rate Greater Than 89 mL/min (>89); Glucose,Random 99 mg/dL (74-106); Potassium 3.9 meq/L (3.5-5.1); Sodium 143 meq/L (136-145); Total Protein 7.1 g/dL (6.4-8.2)
[2018-11-09] MEDS: glipiZIDE 10 MG Tablet PO SCH ×2 (09:39→18:00)
[2018-11-09] MEDS: Vancomycin Inj 2,500 MG in Sodium Chlor 0.9% Inj 500 ML IV.SIG SCH ×2 (09:39→20:00)
[2018-11-09] MEDS: Lactobacillus Acidophilus/L. Spores Tablet PO SCH ×3 (09:39→18:00)
[2018-11-09] MEDS: Lisinopril 20 MG Tablet PO SCH (09:40)
[2018-11-09] MEDS: Insulin NovoLOG Aspart Correctional Sugar Inj SQ SCH ×4 (09:41→21:36)
[2018-11-09 11:58] LABS: Hemoglobin A1c 13.8 % (4.3-6.0)
[2018-11-09] MEDS: Sod Chloride 0.9% Inj 1,000 ML IV.CONT SCH (13:04)
--- NOTE | 2018-11-09 14:18 | P.PNIM ---
Subjective Interval history: 48-year-old female admitted for apparent abscess of the right arch. She underwent a bedside I&D with podiatry yesterday, but that did not produce was suspected as a pocket of pus, rather clear fluid came out. She has no new complaints today. Physical Exam Vital signs: Last Vital Signs Temp 97.7 F 11/09/18 12:47 Pulse 78 11/09/18 12:47 Resp 28 H 11/09/18 12:47 BP 130/64 11/09/18 12:47 Pulse Ox 97 11/09/18 12:47 Intake & Output 11/07/18 11/08/18 11/09/18 11/10/18 06:59 06:59 06:59 06:59 Intake Total 1245 / 1245 525 / 525 Balance 1245 / 1245 525 / 525 Weight 129.1 kg Narrative: GENERAL: NAD, A&Ox3, obese HEAD: Normocephalic. NECK: Supple, trachea midline. No lymphadenopathy. EYES: No scleral icterus. No injection or drainage. CARDIOVASCULAR: Regular rate and rhythm without murmurs, gallops, or rubs. RESPIRATORY: Breath sounds equal bilaterally. No accessory muscle use. GASTROINTESTINAL: Abdomen soft, non-tender, nondistended. MUSCULOSKELETAL: No cyanosis, or edema. SKIN: Warm and dry. Right foot under post surgical dressing. Results Labs CBC & Chem 7: 11/09/18 04:25 11/09/18 04:25 Labs: Microbiology 11/08/18 16:56 Wound - Foot Gram Stain - Final 11/08/18 16:56 Wound - Foot Wound Culture - Preliminary Light growth normal skin dimitris at 24 hours. 11/08/18 11:51 Wound - Foot Gram Stain - Final 11/08/18 11:51 Wound - Foot Wound Culture - Preliminary Moderate growth normal skin dimitris at 24 hours. Imaging Imaging: Impressions Foot MRI 11/08/18 00:00 CONCLUSION: 1. Ill-defined soft tissue edema of the foot as well as ill-defined enhancement of the superficial soft tissues of the foot indicating cellulitis in the proper clinical setting. Findings most prominent at the plantar lateral aspect of the midfoot. 2. Extensive area of relatively less soft tissue enhancement in the plantar soft tissues of the midfoot indicating possible devascularized tissue. No evidence of peripheral enhancing organized abscess. 3. Nonspecific patchy bony edema of the hindfoot, midfoot, and forefoot. Dorsal subluxation of the fourth and fifth metatarsal bases at the TMT joints. No discrete fracture line identified. 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 4. No findings specific for osteomyelitis identified. Foot CT 11/08/18 11:17 CONCLUSION: 1. Diffuse subcutaneous edema of the foot with a suspected open wound laterally adjacent to the fifth tarsometatarsal joint. 2. No organized fluid collection is appreciated on this noncontrast examination to suggest abscess. There are no imaging findings to indicate osteomyelitis. Assessment and Plan Plan 48-year-old female admitted for suspect diabetic infection of right foot Right diabetic foot Empiric treatment for infection, failed outpatient therapy Continue vancomycin MRI and CT of foot but demonstrated edema but no osteomyelitis Follow cultures Appreciate podiatry consult Type 2 diabetes Accu-Cheks with sliding scale insulin coverage Diabetic diet Continue baseline 70/30 Novolin DVT prophylaxis SCDs, ambulate
[2018-11-09] MEDS: Acetaminophen 325 MG Tablet PO PRN (14:34)
--- NOTE | 2018-11-09 18:27 | P.PNPOD ---
Subjective Interval history: Mild foot pain no events overnight Physical Exam Vital signs: Vital Signs 11/08/18 20:00 11/08/18 23:46 11/09/18 08:00 Temperature 97.5 F L 97.8 F 97.4 F L Pulse Rate 68 74 74 Respiratory Rate 20 20 18 Blood Pressure 127/68 133/74 161/91 H Pulse Oximetry 98 96 99 11/09/18 12:47 Temperature 97.7 F Pulse Rate 78 Respiratory Rate 28 H Blood Pressure 130/64 Pulse Oximetry 97 Intake & Output 11/08/18 11/09/18 11/09/18 18:59 06:59 18:59 Intake Total 250 / 250 995 / 995 525 / 525 Balance 250 / 250 995 / 995 525 / 525 Weight 129.274 kg 129.1 kg 285 kg Intake: IV 250 / 250 515 / 515 525 / 525 Vancomycin Inj 1,000 MG In NS 250 / 250 Inj 250 ML @ 250 mls/hr IV.SIG STAT STA Rx#:[id number] Vancomycin Inj 2,500 MG In NS 515 / 515 525 / 525 Inj 500 ML @ 250 mls/hr IV.SIG Q12H LISA Rx#:[id number] Oral 480 / 480 Other: # Voids 2 Weight On Admission 129.418 kg - Constitutional no acute distress - Neurological Alert and oriented x3 - Routine Extremities Exam Comments: Right lower extremity improved redness and swelling. Plantar ulceration mid hindfoot approximately 2 cm x 1.5 cm fully red and granular without any probing tunneling or tracking. Rocker-bottom foot type noted without any crepitus or instability upon range of motion good ankle joint range of motion decreased sensation to light touch and deep pressure pedal pulses fully palpable Medications and Allergies Active Medications: Active Medications Acetaminophen (Tylenol) 650 mg PO Q4H PRN PRN Reason: Temp > 100.4 Last Admin: 11/09/18 14:34 Dose: 650 mg Hydrocodone Bitart/Acetaminophen ([employer] 10/325) 1 tab PO Q4H PRN PRN Reason: Pain 7 to 10 Hydrocodone Bitart/Acetaminophen ([employer] 5/325) 1 tab PO Q4H PRN PRN Reason: Pain 3 to 6 Al Hydroxide/Mg Hydroxide (Milk Of Magnesia Liq) 30 ml PO Q12H PRN PRN Reason: Mild Constipation Dextrose (D50w Vial) 50 ml IV.PUSH UNSCH PRN PRN Reason: PER HYPOGLYCEMIA PROTOCOL Glipizide (Glucotrol) 10 mg PO BIDAC [facility] Last Admin: 11/09/18 18:00 Dose: 10 mg Glucagon (Glucagon Inj) 1 mg OTHER PRN PRN PRN Reason: for Hypoglycemia Protocol Sodium Chloride (Ns Inj) 1,000 mls @ 70 mls/hr IV.CONT .[id number] [facility] Last Admin: 11/09/18 13:04 Dose: Not Given Vancomycin HCl 2,500 mg/ (Sodium Chloride) 525 mls @ 250 mls/hr IV.SIG Q12H [facility] Last Infusion: 11/09/18 13:03 Dose: Infused Insulin Aspart (Novolog Insulin Correctional Sugar Inj) 0 unit SQ ACHS [facility]; Protocol Last Admin: 11/09/18 18:01 Dose: 20 unit Insulin Human Isoph/Insulin Regular (Novolin 70/30 Inj) 60 units SQ BIDAC [facility] Last Admin: 11/09/18 18:00 Dose: 60 units Lactobacillus Acidophilus (Lactinex) 1 tab PO TID [facility] Last Admin: 11/09/18 18:00 Dose: 1 tab Lisinopril (Prinivil) 40 mg PO DAILY [facility] Last Admin: 11/09/18 09:40 Dose: 40 mg Miscellaneous Information ([facility] Ordered Lab Info) 1 each OTHER ONCE ONE Stop: 11/10/18 07:46 Ondansetron HCl (Zofran Inj) 4 mg IV.PUSH Q6H PRN PRN Reason: NAUSEA OR VOMITING Pharmacy Profile Note (Vancomycin Consult Pharmacy) 1 each OTHER UNSCH PRN PRN Reason: Pharmacy to dose Pravastatin Sodium (Pravachol) 20 mg PO DAILY [facility] Last Admin: 11/09/18 09:40 Dose: 20 mg Sodium Chloride (Ns Flush) 2 ml IV.FLUSH BID [facility] Last Admin: 11/09/18 09:40 Dose: 2 ml Sodium Chloride (Ns Flush) 2 ml IV.FLUSH PRN PRN PRN Reason: FLUSH AFTER USING IV ACCESS Allergies Allergy/AdvReac Type Severity Reaction Status Date / Time Sulfa (Sulfonamide Allergy Rash Verified 11/08/18 10:51 Antibiotics) Home Medications Medication Instructions Recorded Confirmed Type amoxicillin-pot clavulanate 1 tab PO BID 11/08/18 11/08/18 History [Augmentin] glipizide 10 mg PO BID 11/08/18 11/08/18 History insulin NPH and regular human 60 units SUBCUT BID 11/08/18 11/08/18 History [Novolin 70/30 U-100 Insulin] lisinopril 40 mg PO DAILY 11/08/18 11/08/18 History lovastatin 20 mg PO DAILY 11/08/18 11/08/18 History metformin 500 mg PO BID 11/08/18 11/08/18 History Results - Labs CBC & Chem 7: 11/09/18 04:25 11/09/18 04:25 Laboratory Results - last 24 hr 11/08/18 11/08/18 11/09/18 18:36 21:06 04:25 WBC 6.8 RBC 4.40 Hgb 13.2 Hct 39.3 MCV 89.4 MCH 30.0 MCHC 33.5 RDW 14.2 Plt Count 241 MPV 8.8 Neut % (Auto) 42.6 Lymph % (Auto) 42.6 Leslie % (Auto) 8.6 H Eos % (Auto) 5.3 H Baso % (Auto) 0.9 Neut # (Auto) 2.9 Lymph # (Auto) 2.9 Leslie # (Auto) 0.6 Eos # (Auto) 0.4 Baso # (Auto) 0.1 WBC Differential . Differential Comment Auto diff final Sodium Potassium Chloride Carbon Dioxide Anion Gap BUN Creatinine Estimated GFR POC Glucose 300 H 313 H Random Glucose Hemoglobin A1c Calcium Total Bilirubin AST ALT Alkaline Phosphatase Total Protein Albumin 11/09/18 11/09/18 11/09/18 04:25 04:25 07:53 WBC RBC Hgb Hct MCV MCH MCHC RDW Plt Count MPV Neut % (Auto) Lymph % (Auto) Leslie % (Auto) Eos % (Auto) Baso % (Auto) Neut # (Auto) Lymph # (Auto) Leslie # (Auto) Eos # (Auto) Baso # (Auto) WBC Differential Differential Comment Sodium 143 D Potassium 3.9 D Chloride 108 H Carbon Dioxide 30.2 Anion Gap 5 BUN 13 Creatinine 0.68 Estimated GFR Greater than 89 POC Glucose 133 H Random Glucose 99 D Hemoglobin A1c 13.8 H Calcium 9.0 Total Bilirubin 0.3 AST 15 ALT 23 Alkaline Phosphatase 76 Total Protein 7.1 D Albumin 2.9 L 11/09/18 17:27 WBC RBC Hgb Hct MCV MCH MCHC RDW Plt Count MPV Neut % (Auto) Lymph % (Auto) Leslie % (Auto) Eos % (Auto) Baso % (Auto) Neut # (Auto) Lymph # (Auto) Leslie # (Auto) Eos # (Auto) Baso # (Auto) WBC Differential Differential Comment Sodium Potassium Chloride Carbon Dioxide Anion Gap BUN Creatinine Estimated GFR POC Glucose 315 H Random Glucose Hemoglobin A1c Calcium Total Bilirubin AST ALT Alkaline Phosphatase Total Protein Albumin Microbiology 11/08/18 16:56 Wound - Foot Gram Stain - Final 11/08/18 16:56 Wound - Foot Wound Culture - Preliminary Light growth normal skin dimitris at 24 hours. 11/08/18 11:51 Wound - Foot Gram Stain - Final 11/08/18 11:51 Wound - Foot Wound Culture - Preliminary Moderate growth normal skin dimitris at 24 hours. - Imaging Impressions Foot MRI 11/08/18 00:00 CONCLUSION: 1. Ill-defined soft tissue edema of the foot as well as ill-defined enhancement of the superficial soft tissues of the foot indicating cellulitis in the proper clinical setting. Findings most prominent at the plantar lateral aspect of the midfoot. 2. Extensive area of relatively less soft tissue enhancement in the plantar soft tissues of the midfoot indicating possible devascularized tissue. No evidence of peripheral enhancing organized abscess. 3. Nonspecific patchy bony edema of the hindfoot, midfoot, and forefoot. Dorsal subluxation of the fourth and fifth metatarsal bases at the TMT joints. No discrete fracture line identified. 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 4. No findings specific for osteomyelitis identified. Assessment and Plan - Assessment (1) Ulcer of right foot due to type 2 diabetes mellitus Code(s): E11.621 - Type 2 diabetes mellitus with foot ulcer; L97.519 - Non- pressure chronic ulcer of other part of right foot with unspecified severity Status: Acute (2) Charcot foot due to diabetes mellitus Code(s): E11.610 - Type 2 diabetes mellitus with diabetic neuropathic arthropathy Status: Acute - Plan MRI CT microbial results reviewed await culture and sensitivity regarding culture likely DC home tomorrow on oral antibiotics. I discussed the MRI and CT findings and I feel the patient is suffering from Charcot arthropathy. Recommended transfer weight-bear only ordered controlled ankle motion boot physical therapy recommended nonweightbearing training with crutches and/or walker. The patient felt she would be best served with a knee scooter. Anticipate DC tomorrow we can follow outpatient. Wound care patient will be able to perform topical antibiotic ointment 4 x 4 and gauze wrapping change daily.
[2018-11-10] MEDS: Sod Chloride 0.9% Inj 1,000 ML IV.CONT SCH (06:08)
[2018-11-10] MEDS ORDERED: Pharmacy Ordered Lab Info OTHER ONE (07:45)
[2018-11-10] MEDS: Insulin NovoLOG Aspart Correctional Sugar Inj SQ SCH ×2 (08:04→11:58)
[2018-11-10] MEDS: glipiZIDE 10 MG Tablet PO SCH (08:19)
[2018-11-10] MEDS: Lisinopril 20 MG Tablet PO SCH (08:20)
[2018-11-10] MEDS: Lactobacillus Acidophilus/L. Spores Tablet PO SCH ×2 (08:20→12:05)
[2018-11-10] MEDS: Vancomycin Inj 2,500 MG in Sodium Chlor 0.9% Inj 500 ML IV.SIG SCH (09:29)
[2018-11-10] MEDS ORDERED: Fluconazole 100 MG Tablet PO ONE (10:00)
[2018-11-10] MEDS: Acetaminophen 325 MG Tablet PO PRN (12:05)
[2018-11-10 12:50] VITALS: BP 105/58; PULSE 74; RESP 20; TEMP 98.1; O2SAT 99
--- NOTE | 2018-11-10 15:07 | P.DS ---
DS: Providers Date of admission: 11/08/18 16:24 Primary care physician: THAD Myers Consults: 11/08/18 16:44 Consult to Podiatry Routine Consulting Provider: Ramana Drew Preferred Sample Box Maker:: Ramana Drew Patient known to:: Ramana Drew Reason for Consultation: Right Foot Infection Notified:: Office Spoke with:: Theresa Date Notified:: 11/08/18 Time Notified:: 16:50 Ordering Provider: DIOGENES Brief History from admission: Mrs. Leung is a 48-year-old female. She comes in the hospital today complaining of right foot infection which has not significantly improved as an outpatient. As an outpatient she has been taking Augmentin. She said a blister formed on her foot, ruptured, and subsequently was draining developed redness. She has redness at the lateral aspect of her foot with the ruptured fluid-filled blister, without purulent discharge. No signs of sepsis on vital signs. She does have a history of peripheral neuropathy and this is likely contributory. Further workup as an inpatient as recommended by her PCP and worldwide chief creative officer. CT scan showed no acute evidence of vasculitis, MRI is pending to screen for abscess and ostium mellitus. No significant pain. No other points today. DS: Diagnosis Discharge Diagnosis (1) Ulcer of right foot due to type 2 diabetes mellitus: Status: Acute (2) Charcot foot due to diabetes mellitus: Status: Acute DS: Summary 48-year-old female with a history of uncontrolled diabetes who presented to the ER with what appeared to be a diabetic foot infection in the arch of her right foot. She was started on empiric coverage with vancomycin, podiatry was consulted who did a bedside incision and drainage that produced only clear fluid and no apparent pus. Cultures were taken and final cultures have returned today that show only normal skin dimitris and no pathogens suspicious for cellulitis. She has a follow-up with podiatry to address the wound as well as work with her to obtain an arch support to address collapsing right arch. 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 She is instructed to return to the ER immediately if any signs of infection appear. Time Spent with Patient Total time spent providing and/or coordinating discharge services: Less than 30 minutes Quality: VTE Deep Vein Thrombosis/Pulmonary Embolism Present on Admission: No Results Labs on day of discharge: Labs from last 24 hours 11/10/18 11/10/18 11/10/18 11:53 08:00 07:46 POC Glucose 293 H 195 H Vancomycin Trough 21.8 H 11/09/18 11/09/18 20:10 17:27 POC Glucose 330 H 315 H Vancomycin Trough Preliminary micro results at discharge 11/08/18 16:56 Wound Culture - Preliminary Wound - Foot 11/08/18 11:51 Wound Culture - Preliminary Wound - Foot Moderate growth normal skin dimitris No anaerobes isolated Impressions ITS Impressions Foot MRI 11/08/18 00:00 CONCLUSION: 1. Ill-defined soft tissue edema of the foot as well as ill-defined enhancement of the superficial soft tissues of the foot indicating cellulitis in the proper clinical setting. Findings most prominent at the plantar lateral aspect of the midfoot. 2. Extensive area of relatively less soft tissue enhancement in the plantar soft tissues of the midfoot indicating possible devascularized tissue. No evidence of peripheral enhancing organized abscess. 3. Nonspecific patchy bony edema of the hindfoot, midfoot, and forefoot. Dorsal subluxation of the fourth and fifth metatarsal bases at the TMT joints. No discrete fracture line identified. 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 4. No findings specific for osteomyelitis identified. Foot CT 11/08/18 11:17 CONCLUSION: 1. Diffuse subcutaneous edema of the foot with a suspected open wound laterally adjacent to the fifth tarsometatarsal joint. 2. No organized fluid collection is appreciated on this noncontrast examination to suggest abscess. There are no imaging findings to indicate osteomyelitis. Discharge Plan Discharge Disposition Patient Disposition: 01 Discharge Home Discharge Condition Condition: Stable Discharge Order Discharge Orders: Discharge Order (Routine); Ordered 11/10/18 Ordered By: Reymundo Meraz Discharge Details Anticipated Discharge Date: 11/10/18 Physicians Team Primary Care Provider: Sebastián Tirado Attending Provider: Reymundo Meraz Other Providers: Ramana Drew Rxs /Orders / Referrals /Forms Prescriptions: New mupirocin calcium [Bactroban] 2 % cream 1 applic TOPICAL BID Qty: 15 RF: 0 cephalexin 500 mg capsule 500 mg PO BID 7 Days Qty: 14 RF: 0 fluconazole 150 mg tablet 150 mg PO ONCE 1 Days Qty: 1 RF: 0 Continue metformin 500 mg Tablet 500 mg PO BID RF: 0 glipizide 10 mg Tablet 10 mg PO BID RF: 0 insulin NPH and regular human [Novolin 70/30 U-100 Insulin] 100 unit/mL (70-30 ) Suspension 60 units subcut BID RF: 0 lovastatin 20 mg Tablet 20 mg PO DAILY RF: 0 lisinopril 40 mg Tablet 40 mg PO DAILY RF: 0 Discontinued amoxicillin-pot clavulanate [Augmentin] 875-125 mg Tablet 1 tab PO BID RF: 0 Referrals: Sebastián Tirado PA [Primary Care Provider] - See Instructions Discharge Interventions Interventions: Discharge Planning - Case Management Last Done: 11/09/18 15:12 Status ED Status: Left Department
[2018-11-10] MEDS ORDERED: Vancomycin Inj 1,500 MG in Sodium Chlor 0.9% Inj 500 ML IV.SIG SCH (18:00)
[2018-11-12] MEDS ORDERED: Pharmacy Ordered Lab Info OTHER ONE (05:45)
== END 2018-11-10 16:38 | disposition home or self-care (01) ==
LOC: NEPE 10:40 → NEDA 16:24 → N07 17:11
PROVIDERS: ADMIT Family Medicine; ATTEND Family Medicine
DX: Z87.891 Personal history of nicotine dependence; E11.621 Type 2 diabetes mellitus with foot ulcer; L03.115 Cellulitis of right lower limb; E11.610 Type 2 diabetes mellitus with diabetic neuropathic arthropathy; L97.519 Non-pressure chronic ulcer of other part of right foot with unspecified severity; E11.65 Type 2 diabetes mellitus with hyperglycemia; I10 Essential (primary) hypertension; E78.5 Hyperlipidemia, unspecified; Z68.42 Body mass index [BMI] 45.0-49.9, adult; E66.9 Obesity, unspecified; Z79.84 Long term (current) use of oral hypoglycemic drugs; E11.628 Type 2 diabetes mellitus with other skin complications; E11.42 Type 2 diabetes mellitus with diabetic polyneuropathy